=== PATIENT | female | born 1995 | race African-American/Black ===

== ENCOUNTER 2017-03-31 19:04 | Emergency (ER) | payer SELFPAY ==
[~2017-03-31] VITALS: Ht 165.1 cm; Wt 65.0 kg
[~2017-03-31 19:04] MED LIST: DIFL150T PO
[2017-03-31 19:07] VITALS: BP 137/98; PULSE 101; RESP 16; TEMP 98.7; O2SAT 96
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
== END 2017-03-31 21:01 | disposition left against medical advice (07) ==
LOC: NEPD 19:04
DX: R68.89 Other general symptoms and signs (principal)
CPT/HCPCS: 99281